=== PATIENT | male | born 1955 | race Caucasian/White ===

== ENCOUNTER → 2017-06-05 | Day surgery (SDC) | payer OTHER ==
[~2017-06-05] VITALS: Ht 172.7 cm; Wt 81.6 kg
[~2017-06-05] MED LIST: ACTOPLUS MET 11 EAC1 PO; AMLODIPINE BESY10 M1 PO; BICALUTAMIDE50 M1 PO; GLYBURIDE2.5 M1 PO; LISINOPRIL20 M1 PO; LO-DOSE ASPIRIN81 MG PO; LUPRON DEPOT30 MG; SIMVASTATIN40 M1 PO; TRIAMTERENE-HC1 EAC1 PO
--- NOTE | 2017-06-05 10:59 | ED GI/GU/ABDOMINAL COMPLAINT ---
History of Present Illness General Chief Complaint: Abdominal Pain/Flank Pain Stated Complaint: ABD PAIN Source: patient, family, old records Exam Limitations: no limitations Vital Signs & Intake/Output Vital Signs & Intake/Output Vital Signs Date Time Temp Pulse Resp B/P B/P Pulse O2 O2 Flow FiO2 Mean Ox Delivery Rate 06/05 1622 98.1 84 16 142/78 98 Room Air 06/05 1257 98.1 89 18 146/77 95 Room Air 06/05 1045 97.0 97 20 165/96 96 Room Air Allergies Coded Allergies: No Known Allergies (10/29/15) Reconcile Medications Amlodipine Besylate 10 MG TABLET 1 TAB PO DAILY BP (Reported) Aspirin (Lo-Dose Aspirin EC) 81 MG TABLET.DR 1 TAB PO DAILY HEART HEALTH ( Reported) Bicalutamide 50 MG TABLET 1 TAB PO DAILY PROSTATE CANCER (Reported) Glyburide 2.5 MG TABLET 0.5 TAB PO DAILY DIABETES (Reported) Leuprolide Acetate (Lupron Depot) (Unknown Strength) SYRINGEKIT (Unknown Dose) AD PROSTATE CANCER (Reported) Lisinopril 20 MG TABLET 1 TAB PO DAILY BP (Reported) Pioglitazone HCl/Metformin HCl (Actoplus Met 15 MG-850 MG Tab) 1 EACH TABLET 1 TAB PO BID DIABETES (Reported) Triamterene/Hydrochlorothiazid (Triamterene-Hctz 37.5-25 MG Tb) 1 EACH TABLET 0.5 TAB PO DAILY BP (Reported) Triage Note: PT TO ED C/O RIGHT SIDED ABD PAIN X 2.5 HOURS, STARTED SUDDENLY WHILE AT WORK. DENIES N/V/D. DENIES S/S. CALLED PCP AND WAS ADVISED TO COME TO ED. Triage Nurses Notes Reviewed? yes Onset: Abrupt Duration: hour(s): (2), constant Timing: recent history Quality/Severity: aching, cramping Severity Numbers: 5 Location: right upper quadrant Radiation: no radiation Activities at Onset: none Prior Abdominal Problems: none No Modifying Factors: none Associated Symptoms: denies HPI: 61-year-old male with history of diabetes hypertension and prostate cancer presents to the ER sent in by his primary care physician after he developed sudden onset of right upper quadrant abdominal pain nonradiating came on prostate hour after eating scrambled eggs for breakfast. He denies any associated nausea vomiting diarrhea. There is no back pain. He denies history of similar symptoms in the past. No hematuria dysuria urgency or frequency. He had a normal bowel movement this morning no black or bloody stools. Patient denies history of abdominal surgeries in the past. There is no chest pain shortness of breath pain with inspiration. No fever no chills, no recent heavy lifting. (Zane Landaverde) Past History Travel History Traveled to [place] past 21 day No Medical History Any Pertinent Medical History? see below for history Cardiovascular: hypertension Endocrine: diabetes Cancer(s): prostate cancer Influenza Vaccine: 11/23/08 Surgical History Surgical History: non-contributory Psychosocial History Who do you live with Spouse Services at Home None What is your primary language Georgian Tobacco Use: Quit >30 days ago ETOH Use: occasional use Illicit Drug Use: denies illicit drug use Family History Hx Contributory? No (Zane Landaverde) Review of Systems Review of Systems Constitutional: Reports: see HPI. Comments Review of systems: See HPI, All other systems negative. Constitutional, no chills no fever, HEENT: no sore throat no congestion Cardiovascular: No chest pain , no palpitation Skin: no rashes, no change in skin Respiratory: No dyspnea no cough no sputum no hemoptysis GI: No nausea no vomiting, no diarrhea, no bloating/constipation : No dysuria No hematuria, no frequency Muscle skeletal: No joint pain, no back pain Neurologic: , no headache Heme/endocrine: No bruising (Zane Landaverde) Physical Exam Physical Exam General Appearance: well developed/nourished, alert, awake, comfortable Gastrointestinal: soft, non-tender, no organomegaly Comments: Well-developed well-nourished person in no acute distress HEENT: Normal EENT exam; PERRL, EOMI, HEAD is atraumatic. moist mucous membranes. Neck: Supple,, normal range of motion Back: Nontender, no CVA tenderness. Full range of motion Cardiovascular: Regular rate and rhythms no murmurs rubs or gallops, normal JVP Respiratory: Chest nontender.There were no bony deformities, no asymmetry. No respiratory distress. Patient speaking in full complete sentences. Breath sounds clear to auscultation bilaterally: NO W/R/R Abdomen: Soft, nontender, negative Holder sign nondistended, no appreciable organomegaly. Normal bowel sounds. No rebound/guarding, No appreciable enlargement of the abdominal aorta, No ascites. no hernia Extremity: No edema, full range of motion of extremities Neuro: Alert oriented x3, motor sensory normal,There were no obvious focal neurologic abnormalities. Skin: No appreciable rash on exposed skin, skin is warm and dry. No jaundice Psych: Mood and affect is normal, memory and judgment is normal. Core Measures ACS in differential dx? No Sepsis Present: No Sepsis Focused Exam Completed? No (Otilio ARCINIEGA,Zane) Progress Differential Diagnosis: AMI, appendicitis, biliary colic, bowel obstruction, cholecystitis, gastritis, hepatitis, hernia, inflamm bowel dis, pancreatitis, peptic ulcer, PUD/GERD, perforated viscous, ureterolithiasis, UTI/pyelo Plan of Care: Orders Procedure Date/time Status PATHOLOGY SPECIMEN 06/05 1726 Active EKG 06/05 1558 Active Add-on Test (ER Only) 06/05 1403 Active Add-on Test (ER Only) 06/05 1153 Active CULTURE,URINE 06/05 1116 Active AMYLASE 06/05 1116 Complete URINALYSIS 06/05 1105 Complete TROPONIN LEVEL 06/05 1105 Complete LIPASE 06/05 1105 Complete COMPREHENSIVE METABOLIC PANEL 06/05 1105 Complete CBC WITHOUT DIFFERENTIAL 06/05 1105 Complete Current Medications Sig/Srikanth Start time Last Medication Dose Stop Time Status Admin Acetaminophen 1,000 MG Q6P PRN 06/05 1430 AC 06/05 (Ofirmev) 1552 N/A 1 UNIT (No Carrier) Laboratory Tests 06/05/17 1116: Anion Gap 18 H, Estimated GFR > 60, BUN/Creatinine Ratio 30.0 H, Glucose 162 H, Calcium 10.4 H, Total Bilirubin 0.7, AST 46, ALT 61, Alkaline Phosphatase 70 , Troponin I < 0.01, Total Protein 8.4 H, Albumin 5.4 H, Globulin 3.0, Albumin /Globulin Ratio 1.8, Amylase 122 H, Lipase 374 H, CBC w Diff NO MAN DIFF REQ, RBC 4.75, MCV 86.4, MCH 30.1, MCHC 34.9, RDW 13.4, MPV 9.1, Gran % 72.2, Lymphocytes % 17.5 L, Monocytes % 7.4, Eosinophils % 2.4, Basophils % 0.5, Absolute Granulocytes 3.3, Absolute Lymphocytes 0.8 L, Absolute Monocytes 0.3, Absolute Eosinophils 0.1, Absolute Basophils 0, Urine Color YEL, Urine Clarity CLEAR, Urine pH 6.0, Ur Specific [place] 1.025, Urine Protein TRACE H, Urine Ketones NEG, Urine Nitrite NEG, Urine Bilirubin NEG, Urine Urobilinogen 0.2, Ur Leukocyte Esterase NEG, Ur Microscopic SEDIMENT EXAMINED, Urine RBC 1-3, Ur Epithelial Cells FEW, Urine Bacteria RARE H, Granular Casts FEW H, Urine Mucus MOD H, Urine Hemoglobin NEG, Urine Glucose 250 H Microbiology 06/05 1116 URINE ROUT: Urine Culture - RECD Labs ordered old records reviewed ultrasound ordered patient is declining anything for pain when offered Case discussed with Dr. Mata agrees with plan Patient back from ultrasound now requesting something for pain Toradol 30 mg ordered. I discussed with him all his labs the patient states that his white blood cell count is currently around to keep believes secondary to his prostate cancer treatments it is 4.6 today which he states is high for him. 1300 call placed to surgery 1325-case d/w Johnson we will have the surgical PA evaluate the patient dr sam in Department to evaluate patient, will take patient to the OR Diagnostic Imaging: Viewed by Me: Ultrasound. Discussed w/RAD: Ultrasound. Radiology Impression: PATIENT: ZANE NOLEN PRESENT AGE: 61 PATIENT ACCOUNT NO: [id number] : 59 LOCATION: [facility] ORDERING PHYSICIAN: Zane ARCINIEGA SERVICE DATE: 06/05/17 EXAM TYPE: US - US- LIMITED ABDOMEN EXAMINATION: US ABDOMEN LIMITED CLINICAL INFORMATION: Right upper quadrant pain.. COMPARISON: None TECHNIQUE: Real-time imaging of the right upper quadrant abdominal viscera. FINDINGS: PANCREAS: Obscured by overlying bowel gas. LIVER: Increased hepatic echogenicity. Mild hepatomegaly. No focal abnormality.. GALLBLADDER: Multiple gallstones. Echogenic bile and sludge noted in the gallbladder. Borderline gallbladder wall thickness varying between 0.3 to 0.4 cm. No gross pericholecystic edema. Patient demonstrated positive sonographic Holder's sign. COMMON BILE DUCT: Normal in caliber measuring 0.4 cm in diameter. RIGHT KIDNEY: Normal. No hydronephrosis. No renal calculi or focal parenchymal lesions. The kidney measures 11.2 cm in maximum dimension. FREE FLUID: None. IMPRESSION: 1. Cholelithiasis. Borderline gallbladder wall thickness and positive sonographic Holder's sign. Findings may represent acute cholecystitis. Further assessment with nuclear medicine hepatobiliary ductal imaging recommended. 2. Hepatic steatosis. DICTATED BY: Ann Montaño MD DATE/ TIME DICTATED:06/05/171248 DIE CAST PATTERNMAKER:OSEAS DATE/TIME TRANSCRIBED: 06/05/171248 CONFIDENTIAL, DO NOT COPY WITHOUT APPROPRIATE AUTHORIZATION. < Electronically signed in Other Vendor System> SIGNED BY: Ann Montaño MD 06/05/17 1257 Initial ED EKG: none (Zane Landaverde) Departure Departure Time of Disposition: 1508 Disposition: STILL A PATIENT Condition: Stable Clinical Impression Primary Impression: Cholecystitis Referrals: Patricia HAYES,Yovani Salinas (PCP/Family) Departure Forms: Customer Survey General Discharge Information OR/GI Note ED Treatment Decision: ZANE NOLEN requires urgent operative management or an emergent procedure that cannot be performed in the Emergency Room setting. (Zane Landaverde) OR/GI Note Spoke With: Johnson HAYES,German Contreras ED Treatment Decision: ZANE NOLEN requires urgent operative management or an emergent procedure that cannot be performed in the Emergency Room setting. Transport To: [facility] PA/CHANGE MANAGEMENT LEAD Co-Sign Statement Statement: ED Attending supervision documentation- [X] I saw and evaluated the patient. I have also reviewed all the pertinent lab results and diagnostic results. I agree with the findings and the plan of care as documented in the PA's/CHANGE MANAGEMENT LEAD's documentation. [X] I have reviewed the ED Record and agree with the PA's/CHANGE MANAGEMENT LEAD's documentation. [] Additions or exceptions (if any) to the PAs/CHANGE MANAGEMENT LEAD's note and plan are summarized below: [Patient is having symptomatic biliary colic and will require a lap cholecystectomy.] (Esperanza HAYES,Gopi Kitchen)
[2017-06-05 11:33] LABS: ABSOLUTE BASOPHIL COUNT 0 /CUMM (0.0-0.2); ABSOLUTE EOSINOPHIL COUNT 0.1 /CUMM (0.0-0.7); ABSOLUTE GRANULOCYTE CT 3.3 /CUMM (1.4-6.5); ABSOLUTE LYMPH COUNT 0.8 /CUMM (1.2-3.4); ABSOLUTE MONOCYTE COUNT 0.3 /CUMM (0.10-0.60); BASOPHIL % 0.5 % (0.0-2.0); EOSINOPHIL % 2.4 % (0-5); GRANULOCYTE % 72.2 % (42.2-75.2); HEMATOCRIT 41.1 % (42-52); MEAN CORPUSCULAR HGB 30.1 PG (27.0-31.0); MEAN CORPUSCULAR HGB CONC 34.9 G/DL (33.0-37.0); MEAN CORPUSCULAR VOLUME 86.4 FL (80.0-94.0); MEAN PLATELET VOLUME 9.1 FL (7.4-10.4); PLATELET COUNT 167 /CUMM (130-400); RBC DISTRIBUTION WIDTH 13.4 % (11.5-14.5); RED BLOOD CELL CT 4.75 /CUMM (4.70-6.10); WHITE BLOOD CELL COUNT 4.6 /CUMM (4.8-10.8)
--- NOTE | 2017-06-05 12:57 | ULTRASOUND REPORT ---
EXAMINATION: US ABDOMEN LIMITED CLINICAL INFORMATION: Right upper quadrant pain.. COMPARISON: None TECHNIQUE: Real-time imaging of the right upper quadrant abdominal viscera. FINDINGS: PANCREAS: Obscured by overlying bowel gas. LIVER: Increased hepatic echogenicity. Mild hepatomegaly. No focal abnormality.. GALLBLADDER: Multiple gallstones. Echogenic bile and sludge noted in the gallbladder. Borderline gallbladder wall thickness varying between 0.3 to 0.4 cm. No gross pericholecystic edema. Patient demonstrated positive sonographic Holder's sign. COMMON BILE DUCT: Normal in caliber measuring 0.4 cm in diameter. RIGHT KIDNEY: Normal. No hydronephrosis. No renal calculi or focal parenchymal lesions. The kidney measures 11.2 cm in maximum dimension. FREE FLUID: None. IMPRESSION: 1. Cholelithiasis. Borderline gallbladder wall thickness and positive sonographic Holder's sign. Findings may represent acute cholecystitis. Further assessment with nuclear medicine hepatobiliary ductal imaging recommended. 2. Hepatic steatosis.
--- NOTE | 2017-06-05 15:03 | History & Physical Pre-Op ---
JazminKim 06/05/17 1457: General Information and HPI MD Statement: I have seen and personally examined ZANE NOLEN and documented this H&P. The patient is a 61 year old M who presented with a patient stated chief complaint of [Right upper quadrant abdominal pain]. Source of Information: patient, family History of Present Illness: Zane is a 61 year old male who presents to the ER today with complaints of right upper quadrant abdominal pain that began this am after a breakfast consisting of eggs cooked with butter. He had fried food last evening but states that it does not deviate from his typical diet. He states that over the past month he has noticed intermittent sharp abdominal pains that resolve spontaneously. Today's pain is persistent and worsening. He describes it as sharp, located in right upper quadrant and across epigastric region. He had a bowel movement this am which he states was within his normal character. No blood per rectum noted. No difficulty voiding. He presently denies chest pain, shortness of breath and difficulty breathing. He denies nausea and vomitting. His past medical history is signficant for htn, dm, sarcoidosis and prostate ca. He has completed his course of chemotherapy. 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 His past surgical history is signficant for lumbar fusion. Allergies/Medications Allergies: Coded Allergies: No Known Allergies (10/29/15) Past History Medical History Cardiovascular: hypertension Endocrine: diabetes Cancer(s): prostate cancer Influenza Vaccine: 11/23/08 Surgical History Pertinent Surgical History: non-contributory, spinal fusion (lumbar) Past Family/Social History Psychosocial History Services at Home None ETOH Use: occasional use Illicit Drug Use: denies illicit drug use Review of Systems Review of Systems Constitutional: Reports: see HPI, malaise. EENTM: Reports: no symptoms. Cardiovascular: Reports: no symptoms. Denies: chest pain, palpitations, syncope. Respiratory: Reports: no symptoms. Denies: cough, short of breath. GI: Reports: see HPI, abdominal pain. Denies: nausea, bloody stool, changes in stool, vomiting. Genitourinary: Reports: no symptoms. Musculoskeletal: Reports: back pain, neck pain (hx lumbar fusion, arthritis). Skin: Reports: no symptoms. Neurological/Psychological: Reports: no symptoms, tingling (bilat.le, not new ). All Other Systems: Reviewed and Negative Exam & Diagnostic Data Last 24 Hrs of Vital Signs/I&O Vital Signs Date Time Temp Pulse Resp B/P B/P Pulse O2 O2 Flow FiO2 Mean Ox Delivery Rate 06/05 1257 98.1 89 18 146/77 95 Room Air 06/05 1045 97.0 97 20 165/96 96 Room Air Intake & Output 06/05 1600 06/05 0800 06/05 0000 Intake Total Output Total Balance Patient 180 lb Weight Weight Estimated Measurement Method Physical Exam General Appearance Alert, Oriented X3, No Acute Distress Skin No Rashes, No Breakdown, No Significant Lesion HEENT Atraumatic, PERRLA, EOMI, Mucous Membr. moist/pink (sclera anicteric) Neck Supple, No JVD Cardiovascular Regular Rate, Normal S1, Normal S2, No Murmurs Lungs Clear to Auscultation, Normal Air Movement Abdomen Normal Bowel Sounds (ruq/epigastric tenderness), Soft Neurological Normal Speech, Strength at 5/5 X4 Ext, Normal Tone (hx of ble neuropathy r>l) Extremities No Clubbing, No Cyanosis, No Edema, Normal Pulses, No Tenderness/ Swelling Vascular Normal Pulses, Pulses Symmetrical Last 24 Hrs of Labs/Rodrigo: Laboratory Tests 06/05/17 1116: Anion Gap 18 H, Estimated GFR > 60, BUN/Creatinine Ratio 30.0 H, Glucose 162 H, Calcium 10.4 H, Total Bilirubin 0.7, AST 46, ALT 61, Alkaline Phosphatase 70 , Troponin I < 0.01, Total Protein 8.4 H, Albumin 5.4 H, Globulin 3.0, Albumin /Globulin Ratio 1.8, Amylase 122 H, Lipase 374 H, CBC w Diff NO MAN DIFF REQ, RBC 4.75, MCV 86.4, MCH 30.1, MCHC 34.9, RDW 13.4, MPV 9.1, Gran % 72.2, Lymphocytes % 17.5 L, Monocytes % 7.4, Eosinophils % 2.4, Basophils % 0.5, Absolute Granulocytes 3.3, Absolute Lymphocytes 0.8 L, Absolute Monocytes 0.3, Absolute Eosinophils 0.1, Absolute Basophils 0, Urine Color YEL, Urine Clarity CLEAR, Urine pH 6.0, Ur Specific [place] 1.025, Urine Protein TRACE H, Urine Ketones NEG, Urine Nitrite NEG, Urine Bilirubin NEG, Urine Urobilinogen 0.2, Ur Leukocyte Esterase NEG, Ur Microscopic SEDIMENT EXAMINED, Urine RBC 1-3, Ur Epithelial Cells FEW, Urine Bacteria RARE H, Granular Casts FEW H, Urine Mucus MOD H, Urine Hemoglobin NEG, Urine Glucose 250 H Microbiology 06/05 1116 URINE ROUT: Urine Culture - RECD Diagnostic Data Other Results PATIENT: ZANE NOLEN PRESENT AGE: 61 PATIENT ACCOUNT NO: [id number] : 59 LOCATION: [facility] ORDERING PHYSICIAN: Zane ARCINIEGA SERVICE DATE: 06/05/17 EXAM TYPE: US - US-LIMITED ABDOMEN EXAMINATION: US ABDOMEN LIMITED CLINICAL INFORMATION: Right upper quadrant pain.. COMPARISON: None TECHNIQUE: Real-time imaging of the right upper quadrant abdominal viscera. FINDINGS: PANCREAS: Obscured by overlying bowel gas. LIVER: Increased hepatic echogenicity. Mild hepatomegaly. No focal abnormality.. GALLBLADDER: Multiple gallstones. Echogenic bile and sludge noted in the gallbladder. Borderline gallbladder wall thickness varying between 0.3 to 0.4 cm. No gross pericholecystic edema. Patient demonstrated positive sonographic Holder's sign. COMMON BILE DUCT: Normal in caliber measuring 0.4 cm in diameter. RIGHT KIDNEY: Normal. No hydronephrosis. No renal calculi or focal parenchymal lesions. The kidney measures 11.2 cm in maximum dimension. FREE FLUID: None. IMPRESSION: 1. Cholelithiasis. Borderline gallbladder wall thickness and positive sonographic Holder's sign. Findings may represent acute cholecystitis. Further assessment with nuclear medicine hepatobiliary ductal imaging recommended. 2. Hepatic steatosis. DICTATED BY: Ann Montaño MD DATE/TIME DICTATED:06/05/171248 PLASTER MODEL AND MOLD MAKER:OSEAS DATE/TIME TRANSCRIBED:06/05/171248 CONFIDENTIAL, DO NOT COPY WITHOUT APPROPRIATE AUTHORIZATION. <Electronically signed in Other Vendor System> SIGNED BY: Ann Montaño MD 06/05/17 1257 Assessment/Plan Assessment/Plan: This is a 61 year old male with a H signficant for htn, dm, hx of prostate ca with completed course of chemotherapy, new onset of neuropathy to bilateral lower extremities. He presents to the ER today complaints of abdominal pain that began this am and has been persistent and primary located in right upper quadrant extending to epigastric region. Ultrasound showing evidence of cholelithiasis as well as some mild gb wall thickening -npo, iv fluids -pre op ekg and cxr -offirmev, toradol prn for pain -abx -OR today with Dr. Ornelas for laparoscopic cholecystectomy -anticipate discharge to home post operatively As Ranked By This Provider Problem List: 1. Cholecystitis Johnson HAYES,German Contreras 06/05/17 2322: General Information and HPI Allergies/Medications Home Med list Amlodipine Besylate 10 MG TABLET 1 TAB PO DAILY BP (Reported) Aspirin (Lo-Dose Aspirin EC) 81 MG TABLET.DR 1 TAB PO DAILY HEART HEALTH ( Reported) Bicalutamide 50 MG TABLET 1 TAB PO DAILY PROSTATE CANCER (Reported) Glyburide 2.5 MG TABLET 0.5 TAB PO DAILY DIABETES (Reported) Leuprolide Acetate (Lupron Depot) (Unknown Strength) SYRINGEKIT (Unknown Dose) AD PROSTATE CANCER (Reported) Lisinopril 20 MG TABLET 1 TAB PO DAILY BP (Reported) Pioglitazone HCl/Metformin HCl (Actoplus Met 15 MG-850 MG Tab) 1 EACH TABLET 1 TAB PO BID DIABETES (Reported) Triamterene/Hydrochlorothiazid (Triamterene-Hctz 37.5-25 MG Tb) 1 EACH TABLET 0.5 TAB PO DAILY BP (Reported) Assessment/Plan Copies To: Patricia HAYES,Yovani Salinas; Sofia HAYES,Deshaun Rivera Attending MD Review Statement Attending Statement Attending MD Statement: examined this patient, discuss w/resident/PA/TAPPER SHANK, reviewed images Attending Assessment/Plan: This is a 61-year-old male with sarcoidosis and metastatic prostate cancer currently in remission. He presents with first episode of biliary pain. Ultrasound characteristics are consistent with acute cholecystitis secondary to gallstones. Given nonresolution of his symptoms recommend laparoscopic cholecystectomy this admission. He agrees. He is informed the risk of the operation including bleeding, infection, conversion to open, postcholecystectomy diarrhea and agrees to proceed. He will be made nothing by mouth given IV fluids and broad-spectrum and a bionics in preparation for surgery
[2017-06-05 16:22] VITALS: BP 142/78
--- NOTE | 2017-06-05 16:57 | RADIOLOGY REPORT ---
EXAMINATION: XR PORTABLE CHEST CLINICAL INFORMATION: Preop. History of sarcoidosis. History of prostate cancer. COMPARISON: CT chest 03/31/2017 TECHNIQUE: Portable frontal view of the chest was obtained. 3:57 PM. FINDINGS: The right and left hilar prominent consistent with a hilar adenopathy seen on CT chest 03/31/2017. The multiple small pulmonary nodules seen on CT chest 03/31/2017 not well seen with plain film. There is no acute abnormality. There is no infiltrate. There is no pulmonary vascular congestion. The heart size is normal. There is no pleural effusion. IMPRESSION: Prominent yazan consistent with the previously demonstrated bilateral hilar lymphadenopathy. No acute change of chest. There is no infiltrate or pleural effusion.
--- NOTE | 2017-06-05 18:07 | Operative Report ---
Operative/Inv Procedure Report Surgery Date: 06/05/17 Name of Procedure: Laparoscopic cholecystectomy Pre-Operative Diagnosis: Acute cholecystitis Post-Operative Diagnosis: Same Estimated Blood Loss: scant Surgeon/Bus Greaser: German Ornelas M.D./Vibha ARCINIEGA Anesthesia: general endotracheal tube Drains: None Specimens: Gallbladder Operative Indication: 61-year-old male presents with right upper quadrant abdominal pain. His found to have acute cholecystitis and presents for resection Operative/Procedure Note Note: After informed consent patient is brought to the operating room and laid supine. General anesthesia was obtained and her abdomen was prepped and draped. The skin above the umbilicus infiltrated with local anesthesia and a curvilinear incision made sharply. We came down through the subcutaneous tissues bluntly and grasped the fascia with Jcarlos's. A fasciotomy was created sharply and stay sutures placed. The peritoneum was entered sharply and a blunt Mercado port was placed. Pneumoperitoneum was achieved. 3, 5 mm ports were placed in the epigastrium and right upper quadrant after local anesthesia was instilled and under direct vision the camera. She's placed in reverse Trendelenburg and rotated towards the left. The gallbladder is identified. Gallbladder was tense and distended. It was grasped at the dome and retracted towards the head. Infundibulum was then grasped. Adhesions to the undersurface were taken down with blunt and cautery dissection. We dissected both sides the triangle Calot peritoneal tissue with cautery. The artery was medial and its normal anatomic position. It was cauterized medially to allow it to be mobilized away from the duct. Henderson was cleared of areolar tissue with cautery. There was a stone in the cystic duct which was milked proximally back into the gallbladder. The arteries and duct were doubly ligated with clips. Gallbladder is removed from the fossa electrocautery. It was placed in Endo Catch bag and cinched up. Right upper quadrant was and suction irrigated normal saline. Hemostasis achieved with cautery. The ports were then removed and the gallbladder delivered and passed off the field. The fascia was closed with 0 Vicryl suture. Skin incisions closed with 4-0 Vicryl. Steri-Strips and sterile dressing applied. Sponge and needle counts are correct. CC: Patricia HAYES,Yovani Salinas; Sofia HAYES,Deshaun Rivera
== END ==
LOC: ERH 10:43 → ER-OR 10:49 → ERH 10:49 → STS 16:23 → ER-OR 19:30 → STS 19:30
PROVIDERS: Physician Assistant Medical
DX: K80.12 Calculus of gallbladder with acute and chronic cholecystitis without obstruction (principal); I10 Essential (primary) hypertension; E11.9 Type 2 diabetes mellitus without complications; D86.9 Sarcoidosis, unspecified; G62.9 Polyneuropathy, unspecified; Z85.46 Personal history of malignant neoplasm of prostate
CPT/HCPCS: 71045; 81001; 87086; 88304; 93005; 93010; 96374; 96375; J0131; J1100; J1885; J2250; J2405; J3010